=== PATIENT | female | born 1965 | race Caucasian/White ===

== ENCOUNTER → 2021-01-12 | Outpatient (CLI) | payer BC ==
--- NOTE | 2021-01-12 15:37 | KCIC ---
EXAM: Bilateral hips and pelvis, 5 views. HISTORY: Pain. COMPARISON: None. FINDINGS: A frontal view the pelvis and frontal and frog-leg views of both hips are obtained. There i s no acute fracture, dislocation or subluxation. There is minimal marginal right femoral head spurrin g and degenerative subchondral cyst formation and subchondral sclerosis involving the superior right acetabulum. There is degenerative change at the lower lumbar levels. IMPRESSION: 1. Mild right hip osteoarthritis. 2. No acute osseous finding. Electronically signed by: Soni Mcgarry MD (01/12/2021 3:35 PM) [id number]
== END ==
LOC: KCIC 15:00
PROVIDERS: ATTEND Nurse Practitioner Family
DX: M16.11 Unilateral primary osteoarthritis, right hip (principal); M47.816 Spondylosis without myelopathy or radiculopathy, lumbar region; Z68.41 Body mass index [BMI] 40.0-44.9, adult
CPT/HCPCS: 73521

== ENCOUNTER → 2021-01-26 | Outpatient (CLI) | payer BC ==
--- NOTE | 2021-01-29 11:28 | KCIC ---
EXAMINATION: MRI LOWER EXTREMITY JOINT WITHOUT INDICATIONS: Chronic bilateral hip pain, trochanteric bursitis. TECHNIQUE: Multiplanar multisequence MRI of the bilateral hip was obtained without contrast. COMPARISON: Pelvis radiograph 01/12/2021 FINDINGS: LEFT HIP: BONES AND CARTILAGE: No acute fracture. Marrow signal is normal. There is mild scattered partial-thic kness cartilage loss. No full-thickness cartilage defects. No avascular necrosis. Pubic symphysis, sa croiliac joints, and lower lumbar spine are unremarkable on single large [id number] coronal series . LABRUM: No discrete labral tear. MUSCLES, TENDONS, AND BURSAE: The gluteus medius and minimus, hamstrings, iliopsoas, rectus femoris, and adductor tendons are intact. Muscles are normal. There is mild trochanteric bursitis. The ischiof emoral space is normal. OTHER: No joint effusion or synovitis. The ligamentum teres is intact. Subcutaneous soft tissues is n ormal. Visualized pelvic contents are unremarkable. RIGHT HIP: BONES AND CARTILAGE: No acute fracture. Marrow signal is normal. No avascular necrosis. There is mild scattered partial-thickness cartilage loss. No full-thickness cartilage defects. Tiny subchondral cy sts in the acetabulum. Pubic symphysis, sacroiliac joints, and lower lumbar spine are unremarkable on single large [id number] coronal series. LABRUM: The anterior superior labrum is increased in signal and ill-defined, consistent with degenera tive tearing. MUSCLES, TENDONS, AND BURSAE: The gluteus medius and minimus, hamstrings, iliopsoas, rectus femoris, and adductor tendons are intact. Muscles are normal. There is minimal peritrochanteric edema. The isc hiofemoral space is normal. OTHER: No joint effusion or synovitis. There is a 2.0 x 1.3 x 1.5 cm lobulated cystic structure exten ding from the inferomedial aspect of the joint (image 16, series 10). The ligamentum teres is intact. Subcutaneous soft tissues is normal. Visualized pelvic contents are unremarkable. IMPRESSION: 1. Mild cartilage loss of the hips. 2. Mild left and trace right trochanteric bursitis. 3. 2 cm lobular cystic structure extending from the inferomedial right hip joint, likely a ganglion c yst. Electronically signed by: Darlin Christopher MD (01/29/2021 11:26 AM) [id number]
== END ==
LOC: KCIC MRI 12:20
PROVIDERS: ATTEND Orthopaedic Surgery
DX: M70.62 Trochanteric bursitis, left hip (principal); M70.61 Trochanteric bursitis, right hip
CPT/HCPCS: 73721-50

== ENCOUNTER → 2021-02-08 | Outpatient (CLI) | payer OTHER, BC ==
[~2021-02-08] MED LIST: BUPIVACAINE MPF 0.5% 10 ML VIAL. IJ ONE; IOHEXOL 300 MG/ML 50 ML VIAL. ONE; LIDOCAINE 1% Multi-Dose 20 ML VIAL. INJ ONE; TRIAMCINOLONE ACETONIDE 40 MG/ML VIAL. IM ONE
--- NOTE | 2021-02-08 10:17 | RAD ---
EXAM: FLUOROSCOPICALLY GUIDED RIGHT HIP INJECTION. HISTORY: Right hip pain. Fluoroscopically guided injection is requested. FINDINGS: The procedure along with its risks and benefits were explained to the patient. She agreed t o proceed. A timeout procedure was performed. The right hip joint was visualized fluoroscopically. The overlying skin was sterilely prepped and inf iltrated with 1% lidocaine for local anesthesia. Under fluoroscopic guidance, 22-gauge spinal needle was advanced into the right hip joint. Intra-articular positioning was confirmed with a small injecti on of iodinated contrast. 40 mg Kenalog mixed with 2 mL 1% lidocaine and 2 mL 0.5% bupivacaine were i nstilled under fluoroscopic control. Instrumentation was withdrawn and a sterile dressing placed. The re were no immediate complications. One fluoroscopic image was obtained. Fluoroscopy time 0.7 minutes . The patient reported their pain was significantly improved after the injection. IMPRESSION: 1. Successful fluoroscopically guided right hip injection. Electronically signed by: Lakia Trammell MD (02/08/2021 10:14 AM) [id number]
== END | disposition home or self-care (01) ==
LOC: RAD 07:56
PROVIDERS: ATTEND Orthopaedic Surgery
DX: M16.0 Bilateral primary osteoarthritis of hip (principal)
CPT/HCPCS: 20610; 77002; J3301; J3490

== ENCOUNTER → 2021-02-21 | Outpatient (CLI) | payer OTHER, BC ==
[~2021-02-21] MED LIST changes: -BUPIVACAINE MPF 0.5% 10 ML VIAL. IJ ONE; +BUPIVACAINE MPF 0.5% 10 ML VIAL. INT ART ONE; +IOHEXOL 300 MG/ML 50 ML VIAL. INT ART ONE; -IOHEXOL 300 MG/ML 50 ML VIAL. ONE; +LIDOCAINE 1% Multi-Dose 20 ML VIAL. ID ONE; -LIDOCAINE 1% Multi-Dose 20 ML VIAL. INJ ONE; -TRIAMCINOLONE ACETONIDE 40 MG/ML VIAL. IM ONE; +TRIAMCINOLONE ACETONIDE 40 MG/ML VIAL. INT ART ONE
--- NOTE | 2021-02-21 14:08 | KCIC ---
FLUOROSCOPICALLY GUIDED LEFT HIP THERAPEUTIC INJECTION 1. INDICATION: The patient is a 55 years old Female who presented with left hip pain and osteoarthri tis. 2. CONSENT: The risks, benefits, treatment options, potential complications and personnel to be invo lved were discussed (including the risks of radiation exposure, instruments to be used, contrast and anesthesia administration) with the patient. All questions were answered and consent was obtained. Th e patient indicated willingness to proceed. 3. GENERAL: a) Medication Reconciliation: The patient's medications and allergies were reviewed in the [facility] medical record and reconciled to the proposed procedure/treatment. Pre-procedure Sign-in: Safety Checklist Performed Yes b) Positioning: The patient was placed Supine on the fluoroscopy table. c) The hip was then sterilely prepped and draped. d) Time Out: A time out was performed immediately prior to procedure start with the nursing, anesthes ia and interventional team, correctly identifying the patient name, date of , procedure, anatomy (including marking of site and side), patient position, procedure consent form, relevant diagnostic and radiology test results, antibiotic administration, safety precautions, and procedure-specific equ ipment needs. Procedure Start Time / Timeout Time: 09:50 e) Anesthesia Type: Local anesthesia: 3 mL 1% Lidocaine 4. PROCEDURE: a) Procedure Details: A 20g spinal needle was inserted into the hip joint. 1 mL Omnipaque 300 was in jected to confirm intra-articular placement of needle. Contrast was observed to flow into the intra-a rticular space of the joint without significant resistance. 3 mL of injectate was administered into t he joint. The needle was removed. Images were stored to the permanent digital archive documenting nee dle position. b) Injectate Contents: 1 mL Triamcinolone Acetonide (Kenalog) 40mg/ml 2 mL 0.5% Bupivacaine (Marcaine,Sensorcaine) c) Estimated Blood Loss: 0 mL RADIATION DOSE: Fluoroscopic Radiation Summary: Fluoroscopy Time: 0:10 min:sec Number of Images: 1 POST PROCEDURE: a) Hemostasis: Hemostasis was achieved using light manual compression. b) Sign-out: Communication Performed Yes c) Procedure End Time: 09:59 d) Conclusion: The patient was discharged from the radiology department in stable condition. COMPLICATIONS: a) Significant Patient Complication: None If other, explain: b) Complications during the procedure: None If other, explain: 5. RESULTS: Medication was injected into the joint. 6. IMPRESSION: SUCCESSFUL FLUOROSCOPICALLY GUIDED THERAPEUTIC INJECTION OF THE LEFT HIP DESCRIBED ABO VE. Electronically signed by: Chema Morrow DO (02/21/2021 2:06 PM) [id number]
== END | disposition home or self-care (01) ==
LOC: KCIC 09:18
PROVIDERS: ATTEND Orthopaedic Surgery
DX: M16.12 Unilateral primary osteoarthritis, left hip (principal); Z79.899 Other long term (current) drug therapy
CPT/HCPCS: 20610; 77002; J3301; J3490; Q9967